=== PATIENT | male | born 1965 | race Caucasian/White ===

== ENCOUNTER → 2018-03-14 | Outpatient (CLI) | payer OTHER ==
--- NOTE | 2018-03-14 09:34 | RADIOLOGY REPORT (SQ) ---
EXAM DESCRIPTION: VENOUS UNILATERAL LOWER COMPLETED DATE/TIME: 03/14/2018 9:25 am REASON FOR STUDY: RLE PAIN, SWELLING R22.41 LOCALIZED SWELLING, MASS AND LUMP, RIGHT LOWER LIMB M79 .605 PAIN IN LEFT LEG COMPARISON: None. TECHNIQUE: Dynamic and static magdaleno scale and color images acquired of the right leg venous system. S elected spectral images acquired with additional compression and augmentation maneuvers. The contrala teral common femoral vein and saphenofemoral junction were also imaged. Images stored on PACS. LIMITATIONS: None. FINDINGS: COMMON FEMORAL: Normal phasicity, compression and augmentation. No visualized echogenic ma terial on magdaleno scale. No defects on color images. FEMORAL: Normal compression and augmentation. No visualized echogenic material on magdaleno scale. No defe cts on color images. POPLITEAL: Normal compression, augmentation. No visualized echogenic material on magdaleno scale. No defec ts on color images. CALF VESSELS: Normal compression, augmentation. No visualized echogenic material on magdaleno scale. No de fects on color images. GSV and SSV: Thrombus in the greater saphenous vein from the saphenous femoral junction to just above the knee. ANY DEEP VENOUS INSUFFICIENCY: Not evaluated. ANY EVIDENCE OF POPLITEAL CYST: No. OTHER: No other significant finding. CONTRALATERAL COMMON FEMORAL VEIN AND SAPHENOFEMORAL JUNCTION: Normal phasicity, compression and augmentation. No visualized echogenic material on magdaleno scale. No de fects on color images. IMPRESSION: Thrombosis greater saphenous vein. No deep vein thrombosis. TECHNICAL DOCUMENTATION: JOB ID: [id number] [employer]- All Rights Reserved Reading location - IP/workstation name: [email or web address]
== END ==
LOC: SP 08:02
PROVIDERS: ATTEND Family Medicine
DX: R22.41 Localized swelling, mass and lump, right lower limb (principal); M79.604 Pain in right leg
CPT/HCPCS: 93971